=== PATIENT | male | born 1950 | race Asian ===

== ENCOUNTER 2016-05-14 08:03 | Observation (INO) | END 2016-05-16 19:10 | disposition home or self-care (01) | DX: M19.071 Primary osteoarthritis, right ankle and foot (principal); I10 Essential (primary) hypertension; K21.9 Gastro-esophageal reflux disease without esophagitis; Z88.0 Allergy status to penicillin; Z87.891 Personal history of nicotine dependence; Z82.41 Family history of sudden cardiac death | CPT/HCPCS: 28750; 73620; 84132; 96365; 96366; 96376; 97163; C1713; G0378; J0690; J1100; J1170; J2250; J2405; J2710; J2795; J3010; J7030 ==